=== PATIENT | female | born 1975 | race Caucasian/White ===

== ENCOUNTER 2016-07-22 05:22 | Day surgery (SDC) | payer OTHER ==
--- NOTE | 2016-07-20 14:38 | EKG Report ---
Test Performed on : 07/20/2016 2:36:28 PM Test Reason : PAT Blood Pressure : / mmHG Vent. Rate : 093 BPM Atrial Rate : 093 BPM P-R Int : 110 ms QRS Dur : 090 ms QT Int : 368 ms P-R-T Axes : -28 014 015 degrees QTc Int : 457 ms Sinus rhythm. with short VT Low voltage QRS Borderline ECG When compared with ECG of 16-SEP-2015 02:18, No significant change was found Confirmed by Chin Encinas MD ([id number]) on 07/21/2016 9:46:49 PM
[~2016-07-22 05:22] MED LIST: KEFZOL 1 GM/D5W 0 ML ONE; LR 0 ML ONE; PEPCID ONE; REGLAN ONE
[2016-07-22] MEDS ORDERED: LR 1,000 ML ONE ×2 (05:47→09:34)
[2016-07-22] MEDS ORDERED: VALIUM ONE (05:47)
[2016-07-22] MEDS ORDERED: VANCOMYCIN 1 GM/NS 250 ML ONE (05:47)
[2016-07-22 06:04] LABS: MANUAL DIFF NEEDED? NO
[2016-07-22 06:17] LABS: BASO% 0.1 % (0.0-0.8); EOS# 0.27 X1000 (0.0-0.7); HEMATOCRIT 36.1 % (37.0-47.0); HEMOGLOBIN 11.4 g/dL (12.0-16.0); LYMPH% 29.7 % (20.5-51.1); MCH 30.3 PG (27-31); MCHC 31.6 g/dL (33-37); MONO# 0.56 X1000 (0.11-0.59); MONO% 8.3 % (1.7-9.3); MPV 11.7 FL (7.4-10.4); NEUT% 57.9 % (42.2-75.2); PLT 182 X1000 (130-400); RBC 3.76 XMIL (4.2-5.4)
[2016-07-22] MEDS ORDERED: MARCAINE 0.25% PF ONE (06:46)
[2016-07-22] MEDS ORDERED: DEPO-MEDROL ONE (06:46)
[2016-07-22] MEDS ORDERED: NEOSPORIN G.U. IRRIGANT ONE (06:47)
[2016-07-22 06:52] LABS: AGAP 15; BUN 16 mg/dL (8-22); CALCIUM 8.8 mg/dL (8.8-10.2); CHLORIDE 100 mmol/L (98-107); COSMO 282; POTASSIUM 3.3 mmol/L (3.5-5.1); SODIUM 139 mmol/L (136-145); TCO2 24 mmol/L (25-35)
[2016-07-22] MEDS ORDERED: FENTANYL ONE (08:45)
[2016-07-22] MEDS ORDERED: DIPRIVAN 1% ONE (08:45)
[2016-07-22] MEDS: DEMEROL ONE ×4 (08:56→09:18)
[2016-07-22] MEDS ORDERED: XYLOCAINE-MPF 2% ONE (09:34)
[2016-07-22] MEDS ORDERED: ZOFRAN ONE (09:34)
[2016-07-22] MEDS ORDERED: TORADOL ONE (09:34)
[2016-07-22] MEDS ORDERED: BENADRYL ONE (10:02)
[2016-07-22] MEDS ORDERED: DEMEROL ONE (10:25)
[2016-07-22 10:39] VITALS: BP 130/80
--- NOTE | 2016-07-22 10:59 | OPERATIVE NOTE ---
PROCEDURE DATE: 07/22/2016 DATE OF PROCEDURE: 07/22/2016. PREOPERATIVE DIAGNOSES: 1. Right carpal tunnel syndrome. 2. Right cubital tunnel syndrome. 3. Right subacromial bursitis. PROCEDURES: 1. Right carpal tunnel release. 2. Right cubital tunnel release with anterior ulnar nerve transposition. 3. Subacromial corticosteroid injection, right shoulder. SURGEON: Santos Acosta. ACCOUNT MANAGER SALES REPRESENTATIVE: Sam Lipscomb. IV FLUIDS: 1100 mL lactated Ringer's. ESTIMATED BLOOD LOSS: 5 mL. TOURNIQUET TIME: 64 minutes at 250 mmHg. INDICATION: The patient is a pleasant, 41-year-old female with chronic history of pain and paresthesia, right upper extremity. EMG nerve study findings consistent with carpal tunnel syndrome, as well as cubital tunnel syndrome. The patient also has underlying neuropathy. The patient also complains of pain and discomfort in the right shoulder. She had clinical findings consistent with subacromial bursitis. A recommendation to proceed with right carpal tunnel release, cubital tunnel release, anterior ulnar transposition and subacromial corticosteroid injection. Risks and benefits for surgery explained to her and include anesthesia, , bleeding, infection, failure to relieve pain, postoperative stiffness, nerve injury, blood clots, and other imponderables. All questions answered and patient family wished to proceed with surgery. DETAILS OF OPERATION: The patient was taken to the operating room and placed supine on the operating table. Once adequate anesthesia was obtained, patient's right upper extremity was subsequently prepped and draped in the usual sterile fashion. Esmarch was used to exsanguinate the right upper extremity, and the tourniquet was inflated to 250 mmHg. Attention was turned to the base of the hand in line with the third web space, and a small longitudinal incision was made. Careful dissection performed through the superficial fascia. Right angle retractor was then placed. The transverse carpal ligament was then identified and carefully incised full thickness with a 15 blade. A [place] was then passed on the undersurface distally. Under direct visualization, the distal aspect of the transverse carpal ligament was released. In likewise fashion, a [place] was then passed proximally. The proximal aspect of the transverse carpal ligament was released along with volar fascia. There appeared to be good release both proximally and distally. The median nerve had no obvious pathology. After this had been performed, wound was copiously irrigated out. The 4-0 nylon was used to close skin in interrupted fashion. Then, attention turned to the medial aspect of the elbow. A small gentle curvilinear incision made just posterior to the medial epicondyle. Careful dissection performed through the superficial fascia. The ulnar nerve was identified proximally to the cubital tunnel and carefully circumferentially dissected. A Sridhar drain was then placed. The fascia proximally was released and circumferential dissection then carried distally. The cubital tunnel was released under direct visualization. Careful dissection was then performed more distally along the ulnar nerve, and once it was adequately and safely transposed anteriorly, there appeared to be good positioning. The wound was copiously irrigated out. The 2-0 Vicryl was used to repair the subcutaneous tissue from the anterior skin envelope to the posterior medial aspect of the fascia overlying the medial epicondyle to maintain the anterior and ulnar transposition. There appeared to be good positioning. The wound was copiously irrigated out. The 2-0 Vicryl was then used to repair the subcutaneous tissue followed by 4-0 Biosyn in a running fashion. Total of 25% Marcaine without epinephrine was injected locally at both incisions. Benzoin Steri-Strips were applied to the wound on the medial elbow followed by Adaptic, sterile 4 x 4s, Webril and posterior splint applied to the right upper extremity. The patient also placed in envelope sling. Attention turned to the right shoulder, where 80 mg of Depo-Medrol along with 0.25% Marcaine was injected in the subacromial space under sterile technique. The patient tolerated the procedure well with no complications. She was transferred to the recovery room in stable condition. [facility]
== END 2016-07-22 10:45 | disposition home or self-care (01) ==
LOC: OPS 05:22
PROVIDERS: ATTEND Orthopaedic Surgery Adult Reconstructive Orthopaedic Surgery
DX: G56.01 Carpal tunnel syndrome, right upper limb (principal); M75.51 Bursitis of right shoulder; I10 Essential (primary) hypertension; M79.7 Fibromyalgia; E11.9 Type 2 diabetes mellitus without complications; M19.90 Unspecified osteoarthritis, unspecified site; E03.9 Hypothyroidism, unspecified
CPT/HCPCS: 80048; 82948; 84703; 85025; 93005; 93010; J0690; J1040; J1200; J1885; J2175; J2405; J3010; J3370; J7120; S0020

== ENCOUNTER 2019-08-21 13:09 | Observation (INO) ==
[2019-08-21] MEDS ORDERED: TYLENOL PO PRN (14:15)
[2019-08-21] MEDS: NS 1,000 ML IV SCH (14:49)
[2019-08-21] MEDS: LOVENOX SUBQ SCH (14:50)
[2019-08-21] MEDS: PRIMAXIN 500 MG in NS 100 ML IV SCH ×2 (15:44→23:59)
--- NOTE | 2019-08-21 15:51 | Diag Imaging Result Doc PS360 ---
EXAM: CT RENAL STONE SEARCH HISTORY: Right flank pain/ pyelonephritis TECHNIQUE: CT abdomen and pelvis without oral or intravenous contrast COMPARISON: 03/02/2017 FINDINGS: The gallbladder has been removed. No focal hepatic abnormality identified on this noncontrasted exam. The left lobe of the liver is prominent. No splenomegaly. No inflammation about the pancreas. Normal adrenal glands. No renal stones. No hydronephrosis. No aortic aneurysm. There are small para-aortic and mesenteric nodes. No bowel obstruction. There is stool throughout the colon. No ascites. There are small ovarian cysts. No abnormality to the uterus. The urinary bladder is not distended. IMPRESSION: 1.Cholecystectomy 2.No renal stones or hydronephrosis 3.Constipation This exam was performed using automated exposure control, adjustment of mA or kV according to patient size, and/or use of iterative reconstruction technique. Electronically signed by Lionel Jefferson 08/21/2019 3:48 PM
[2019-08-21 16:15] LABS: BASO# 0.05 X1000 (0.0-0.2); BASO% 0.6 % (0.0-0.8); EOS# 0.32 X1000 (0.0-0.7); EOS% 4.1 % (0.0-10.0); HEMOGLOBIN 12.3 g/dL (12.0-16.0); IMM GRAN# 0.02 X1000 (0.0-0.04); IMM GRAN% 0.3 % (0.0-0.5); LYMPH# 2.58 X1000 (1.2-3.4); LYMPH% 33.2 % (20.5-51.1); MCH 30.6 PG (27-31); MCHC 31.5 g/dL (33-37); MONO# 0.45 X1000 (0.11-0.59); MONO% 5.8 % (1.7-9.3); MPV 12.1 FL (7.4-10.4); NEUT# 4.36 X1000 (1.4-6.5); PLT 191 X1000 (130-400); RBC 4.02 XMIL (4.2-5.4); RDW 12.7 % (11.5-14.5); WBC 7.78 X1000 (4.8-10.8)
[2019-08-21 16:39] LABS: ALB/GLOB RATIO 1.3; ALBUMIN 4.2 g/dL (3.5-5.0); CALCIUM 9.3 mg/dL (8.8-10.2); TOTAL BILIRUBIN 0.21 mg/dL (0.20-1.00); TOTAL PROTEIN 7.5 g/dL (6.3-8.3)
[2019-08-21] MEDS ORDERED: MIRALAX PO ONE (19:39)
--- NOTE | 2019-08-21 20:16 | HISTORY AND PHYSICAL ---
PRIMARY CARE PHYSICIAN: Dr. Chin Encinas. CHIEF COMPLAINT: Intractable pelvic pain, profound fatigue, dehydration. HISTORY OF PRESENT ILLNESS: A 44-year-old white female with a complicated past medical history presents for evaluation of above-mentioned symptoms. Pertinent history of present illness began approximately 2 weeks ago. At that time, patient had a folliculitis requiring incision and drainage performed by Dr. Valdivia. The patient tolerated this procedure well. Postprocedure, she was started on Bactrim therapy. After approximately 2 days of Bactrim, she developed urinary symptoms including urinary frequency and dysuria. Interestingly, with time, symptoms did improve, but last she developed a malodorous urine as well as urinary emphysema. The patient contacted my office on Wednesday. Urinalysis was performed revealing a urinary tract infection. Levofloxacin therapy was initiated. Emphysema resolved quickly. The malodorous urine also improved. Yesterday, patient's culture returned positive for E. coli. This was noted to be resistant to Levaquin. The patient was contacted via phone and Macrobid therapy was prescribed. Levofloxacin was discontinued. Unfortunately, she did not have this filled. Overnight, she developed significant right flank pain, bladder pain/spasms, and profound fatigue. She denies fevers and chills. She attempted to work today, but was forced to stop secondary to her pain. The patient contacted my office and the patient will be admitted to the hospital for full evaluation and management. Of note, patient has had loose stools for several weeks. She denies any hematochezia or melena. She has had a mild cough, but no shortness of breath or wheezing. PAST MEDICAL HISTORY: 1. History of left-sided adhesive capsulitis status post manipulation under anesthesia in 2012. 2. B12 deficiency anemia. 3. Anxiety. 4. Right shoulder pain, chronic. 5. Carpal tunnel syndrome status post bilateral intervention in 2012. 6. Necrobiosis lipoidica diabeticorum. 7. Cubital tunnel syndrome status post left-sided surgical intervention in 2012 and right-sided intervention in 2016. 8. Emphysematous cystitis diagnosed in 2017. 9. Depression. 10. Neurodermatitis. 11. Diabetic neuropathy. 12. Diabetic nephropathy. 13. Diabetes treated with insulin pump. 14. Hypertriglyceridemia. 15. Nonalcoholic fatty liver disease. 16. Gastroparesis. 17. Hyperlipidemia. 18. Hypertension. 19. Hypothyroidism. 20. Partial left rotator cuff tear diagnosed in 2013 requiring surgical intervention in 2018. 21. Iron deficiency anemia. 22. 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 23. Insomnia. 24. Proteinuria. 25. Trigeminal neuralgia. CURRENT MEDICATIONS: 1. Multivitamin daily. 2. Vitamin B12 1000 mcg IM every other week. 3. Effexor XR 150 mg at bedtime. 4. Fenofibrate 54 mg at bedtime. 5. Folic acid 1 mg daily. 6. Humalog insulin pump. 7. Hyzaar 100/25 daily. 8. Lasix 40 mg at bedtime. 9. Levothyroxine 112 mcg daily. 10. Lyrica 300 mg at bedtime. 11. Meloxicam as needed. 12. Valacyclovir 500 mg daily. ALLERGIES: Patient states she is allergic to Actos, Ambien, amitriptyline, Cymbalta, Depakote, Dilantin, Dilaudid, fenofibrate, Glucophage, Keflex, Lexapro, lisinopril, Lortab, Lunesta, morphine, penicillin, Percocet, Prozac, Remeron, Seroquel, statin, Tegretol, Trileptal, Welchol, Zetia, and Zoloft. SOCIAL HISTORY: Patient is a former smoker. She smoked 1 pack per month for 22 years. She stopped in 2011. She denies alcohol or illicit drug use. She works as an RN at [employer]. She enjoys crafts and reading. She exercises as tolerated. FAMILY HISTORY: Patient's father is 73 and has a history of diabetes, hypertension, atrial fibrillation, and hyperlipidemia. Patient's mother is 71 and has a history of COPD, diabetes, hyperlipidemia, hypothyroidism, and depression. REVIEW OF SYSTEMS: A 12 point review of systems was performed. Pertinent positives and negatives in history present illness. PHYSICAL EXAMINATION: VITAL SIGNS: Temperature 98.4 degrees, heart rate 81, respirations 20, blood pressure is 113/66. GENERAL: No acute distress. HEENT: Normocephalic, atraumatic. Pupils equal, round, reactive to light. Extraocular muscles intact. Sclerae anicteric. [place] conjunctivae. Oral and nasopharynx clear without exudate. NECK: Supple. No lymphadenopathy. No thyromegaly. No bruits auscultated. CARDIOVASCULAR: Regular rate and rhythm. No significant murmurs, rubs, or gallops. PULMONARY: Clear to auscultation bilaterally. ABDOMEN: Soft, nontender, nondistended. Positive bowel sounds. EXTREMITIES: Moves all extremities well. No significant clubbing, cyanosis, or edema. NEUROLOGIC: Cranial nerves 2-12 grossly intact. Motor and sensory grossly intact. PSYCHOLOGIC: Appropriate. LABORATORY DATA: White blood cell count 7.78, hemoglobin 12.3, hematocrit 39.0, platelet count 191,000. Sodium 137, potassium 4.0, chloride 95, bicarb 29, BUN 19, creatinine 1.0, glucose 248, calcium 9.3, total bilirubin 0.21, total protein 7.5, albumin 4.2, alkaline phosphatase 72, AST 17, ALT 19. CT renal stone search revealed cholecystectomy, no renal stones or hydronephrosis, constipation. Urine culture revealed E coli sensitive to amikacin, gentamicin, imipenem, nitrofurantoin, and tobramycin. ASSESSMENT AND PLAN: A 44-year-old white female with a very complicated past medical history as noted presents for evaluation of intractable pelvic and flank pain. Symptoms are most consistent with pyelonephritis. She was treated with levofloxacin prior to urine culture. She was transitioned to Macrobid, but was unable to start this overnight. With her intractable symptoms and progression, patient will be admitted to the hospital for full evaluation and management. 1. Admit to General Medicine. 2. Clinical pyelonephritis-the patient will be placed on Primaxin therapy. We will check blood cultures. We will initiate hydration. We will follow this closely while hospitalized. At time of discharge, we will consider transitioning back to Macrobid therapy. 3. Constipation-this certainly could be contributing to her symptoms. We will start patient on MiraLAX tonight. We will determine if more aggressive intervention is appropriate in the a.m. We will remain aware that patient has had diarrhea over the course of the last several days. This likely was secondary to her constipation and with only liquid stool passing. 4. Anxiety/depression-we will continue patient on her home medications. 5. Diabetes-patient is treated with an insulin pump. We will continue this for now. 6. Hypertension-at this point, we will hold patient's Hyzaar. We will monitor patient's blood pressures. Once she achieves euvolemia, we will plan to resume therapy. 7. Dehydration-clinically, patient is dehydrated. We will initiate aggressive but cautious hydration. 8. Fluid, electrolytes, nutrition. We will monitor electrolytes. Normal saline at 75 mL an hour. Diabetic diet. 9. Prophylaxis. Patient will be placed on subcu Lovenox. cc: Chin Encinas MD
[2019-08-21] MEDS: PYRIDIUM PO PRN (20:27)
[2019-08-21] MEDS: EFFEXOR XR PO SCH (20:28)
[2019-08-21] MEDS: LYRICA PO SCH (20:28)
[2019-08-22] MEDS: NS 1,000 ML IV SCH ×2 (04:55→22:13)
[2019-08-22] MEDS: PRIMAXIN 500 MG in NS 100 ML IV SCH ×3 (06:10→22:17)
[2019-08-22] MEDS: SYNTHROID PO SCH (06:10)
[2019-08-22] MEDS: PYRIDIUM PO PRN (06:14)
[2019-08-22] MEDS: THERA M PLUS PO SCH (09:20)
[2019-08-22] MEDS: LOVENOX SUBQ SCH (14:51)
[2019-08-22] MEDS ORDERED: PERICOLACE PO ONE (15:19)
--- NOTE | 2019-08-22 15:34 | PROGRESS NOTE ---
DATE: 08/22/2019 SUBJECTIVE: Upon my arrival this morning, patient states she is somewhat improved from yesterday. Her energy level remains low but is slightly improved. She continues to have lower abdominal and pelvic pain, although this is decreased slightly. She denies fevers, chills, nausea, or vomiting. She has had some loose stools. OBJECTIVE: Vital signs: T-max 98.8 degrees, heart rate 65 to 87, respirations 18 to 21, blood pressure 98 to 125 over 53 to 72. General: No acute distress. Cardiovascular: Regular rate and rhythm. No significant murmurs, rubs, or gallops. Pulmonary: Clear to auscultation bilaterally. Abdomen: Soft, nondistended. Tenderness in the suprapubic region. Positive bowel sounds. Extremities: Moves all extremities well. No significant clubbing, cyanosis, or edema. Dermatologic: Evaluation reveals no evidence of rash. LABORATORY DATA: None. ASSESSMENT AND PLAN: 1. Pyelonephritis-this is a clinical diagnosis with a resistant Escherichia coli. The patient is currently being treated with Primaxin therapy. Thus far, she has tolerated well. Overall, symptoms are slowly improving. We will continue current medical regimen and plan to transition back to Macrobid at discharge. 2. Constipation-this is an interesting diagnosis in the setting of loose stools. I suspect patient does have a colonic impaction with loose stool passing forward. We will re-treat patient with MiraLAX therapy. We will consider whether enema intervention is warranted depending on the progress. 3. Anxiety/depression-we will continue patient's home medications. Symptoms are controlled. 4. Diabetes-the patient is treated with an insulin pump. We will continue this. 5. Hypertension-the patient's Hyzaar has been held secondary to dehydration. We will plan to resume this once euvolemia has been achieved. 6. Dehydration-we have achieved improvement with IV fluids. We will continue this. 7. Disposition-at this point, patient continues to require fpc care in a hospital setting. We will plan discharge home once appropriate. cc: Chin Encinas MD
[2019-08-22] MEDS: MIRALAX PO ONE ×2 (16:30→16:31)
[2019-08-22] MEDS: EFFEXOR XR PO SCH (22:19)
[2019-08-22] MEDS: LYRICA PO SCH (22:19)
[2019-08-23] MEDS: PRIMAXIN 500 MG in NS 100 ML IV SCH ×2 (06:08→14:46)
[2019-08-23] MEDS: SYNTHROID PO SCH (06:08)
[2019-08-23] MEDS: THERA M PLUS PO SCH (09:03)
[2019-08-23] MEDS: NS 1,000 ML IV SCH (12:43)
[2019-08-23 13:50] VITALS: BP 106/45
[2019-08-23] MEDS: LOVENOX SUBQ SCH (14:46)
--- NOTE | 2019-08-23 15:45 | DISCHARGE SUMMARY ---
ADMISSION DATE: 08/21/2019 DISCHARGE DATE: 08/23/2019 ADMISSION DIAGNOSES: 1. Intractable pelvic pain. 2. Profound fatigue. 3. Dehydration discharge 4. Pyelonephritis secondary to resistant Escherichia coli. 5. Constipation, improving. 6. Profound fatigue, improving. 7. Anxiety/depression, present on arrival. 8. Diabetes, present on arrival. 9. Hypertension, present on arrival. 10. Dehydration, improving. CONSULTATIONS: None. PROCEDURES: CT scan of the abdomen and pelvis was performed on 08/21/2019 which revealed cholecystectomy. No renal stones or hydronephrosis. Constipation. HISTORY AND PHYSICAL EXAMINATION: See admit note. Physical examination prior to discharge: Vital Signs: Temperature 97.7 degrees, heart rate 81, respirations 18, blood pressure is 100/57. General: Chronically ill appearing, no acute distress. Cardiovascular: Regular rate and rhythm. No significant murmurs, rubs, or gallops. Pulmonary: Clear to auscultation bilaterally. Abdomen: Soft, nontender, nondistended. Positive bowel sounds. Extremities: Moves all extremities well. No significant clubbing, cyanosis, or edema. Dermatologic: Evaluation reveals no evidence of rash. LABORATORY DATA: None. HOSPITAL COURSE: The patient was admitted as per history and physical examination. Hospital course per condition is as follows: 1. Pyelonephritis-the patient was recently seen via video telemedicine appointment. Urinalysis had returned abnormal. Patient was started on levofloxacin therapy. Culture was performed. On the day prior to admission, culture data returned with a resistant Escherichia coli. Patient was transitioned from levofloxacin to Macrobid. The patient initiated Macrobid on the day of admission. Unfortunately, despite this, she continued to have significant pelvic pain and profound fatigue. P.o. intake had decreased considerably. Because of her increasing symptoms, patient was admitted to the hospital. She was started on Primaxin therapy. Overall, patient's condition rapidly improved. At time of discharge, she continued to have some pelvic discomfort, although this had decreased. The patient will be discharged with 2 weeks of Macrobid therapy. Pyridium will be provided for bladder and pelvic discomfort. 2. Constipation-a CT scan suggested underlying constipation. Despite having loose stools. I suspect the patient is having loose stools pass around her underlying constipation. She was started on MiraLAX therapy. Patient has had several bowel movements while hospitalized. The patient is to continue MiraLAX as needed for abdominal discomfort and constipation. 3. Dehydration-upon admission, patient was noted to be moderately dehydrated. Patient was started on IV fluids. She tolerated this quite well. At time of discharge, she was euvolemic. Patient is to hold her Lasix and Hyzaar until systolic blood pressure is consistently greater than 130. 4. Anxiety/depression-patient was continued on home medications with adequate response. 5. Diabetes-the patient was continued on her insulin pump while hospitalized. Blood sugars remained reasonably controlled. 6. Hypertension-patient's Hyzaar was held secondary to dehydration. Systolic blood pressure remained in the 100 to 110 range. We will continue to hold patient's Hyzaar until her systolic blood pressure is consistently greater than 130. DISCHARGE CONDITION: Good. DISPOSITION: Discharge to home. MEDICATIONS: 1. Acetaminophen 650 mg every 6 hours as needed. 2. Levothyroxine 112 mcg daily. 3. Multivitamin daily. 4. Pyridium 200 mg 3 times daily as needed. 5. Lyrica 300 mg at bedtime. 6. Venlafaxine ER 150 mg at bedtime. 7. Acyclovir 500 mg at bedtime. 8. Lasix 40 mg at bedtime to resume when systolic blood pressure is consistently above 130. 9. Insulin pump. 10. Hyzaar 100/25 at bedtime. Patient is to hold until systolic blood pressure is consistently greater than 130. 11. Macrobid 100 mg twice daily for 14 days. FOLLOWUP: The patient is to follow up with me in approximately 1 to 2 weeks. cc: Chin Encinas MD
== END 2019-08-23 17:34 | disposition home or self-care (01) | DRG 690 ==
LOC: INTOOBSV 13:09 → DIRADM 13:09 → 1N 13:49
PROVIDERS: ADMIT Internal Medicine; ATTEND Internal Medicine